=== PATIENT | male | born 1935 | race Caucasian/White ===

== ENCOUNTER 2021-05-13 21:24 | Inpatient (IN) | payer MEDICARE ==
[2021-05-13 23:53] LABS: ALT (SGPT) 14 U/L (8-55); AST (SGOT) 17 U/L (5-34); Albumin 3.8 g/dL (3.4-4.8); Alkaline Phosphatase 79 U/L (40-110); Anion Gap 15 mmol/L (10-20); BUN (Urea Nitrogen) 46 mg/dL (8.4-25.7); Bilirubin, Total 0.9 mg/dL (0.2-1.2); Calc. Creatinine Clearance 0 mL/min (70-130); Calcium 9.4 mg/dL (7.8-10.44); Carbon Dioxide 21 mmol/L (23-31); Chloride 109 mmol/L (98-107); Globulin 3.1 g/dL (2.4-3.5); Glucose 94 mg/dL (83-110); Potassium 4.3 mmol/L (3.5-5.1); Protein, Total 6.9 g/dL (5.8-8.1); Sodium 141 mmol/L (136-145)
[2021-05-14] MEDS ORDERED: cefTRIAXone\\ROCEPHIN 2 GM VIAL ONE (00:02)
[2021-05-14] MEDS ORDERED: Azithromycin 500 MG VIAL ONE (00:02)
[2021-05-14] MEDS ORDERED: Sodium Chloride 0.9% 100 ML ONE (00:02)
[2021-05-14 00:03] LABS: Bilirubin Negative (Negative); Blood, Urine Negative (Negative); Clarity Clear (Clear); Glucose, Urine (Dipstick) Normal (Negative); Ketone, Urine Trace mg/dL (Negative); Leukocyte Negative Leu/uL (Negative); Nitrite Negative (Negative); Protein, Urine (Dipstick) Negative (Neg-Trace); Specific Gravity, Urine 1.017 (1.002-1.036); Urobilinogen Normal mg/dL (Less than 2)
[2021-05-14 00:04] LABS: #Lymphocytes 0.9 thou/uL (1.20-3.40); #Monocytes 1.1 thou/uL (0.11-0.59); #Neutrophils 6.7 thou/uL (1.40-6.50); %Basophils 0.3 % (0.0-1.0); %Eosinophils 0.3 % (0.0-10.0); %Lymphocytes 9.7 % (21.0-51.0); %Neutrophils 76.8 % (42.0-75.0); Band 6 % (5-11); Hemoglobin 12.2 g/dL (14.0-18.0); Lymphocytes 3 % (21-51); MDiff Complete? YES; Macrocytosis SLIGHT = 6-15 cells (100X) (0-5/hpf); Mean Corpuscular HGB CONC 32.4 g/dL (32.0-36.0); Mean Corpuscular Hemoglobin 35.2 pg (27.0-31.0); Monocytes 14 % (0-10); Neutrophil 77 % (42-75); Platelet Count 150 thou/uL (130-400); Platelet Morphology Comment Appears Adequate; RBC Distribution Width 12.7 % (11.5-14.5); Red Blood Cell (RBC) Count 3.46 mill/uL (4.70-6.10); White Blood Cell (WBC) Count 8.7 thou/uL (4.8-10.8)
[2021-05-14 01:56] LABS: SARS-CoV-2 NAA Rapid Test Not Detected (NotDetected)
[2021-05-14 02:53] VITALS: BMI 25.4
[2021-05-14] MEDS ORDERED: Dextrose 5% in Water 1,000 ML IV PRN (09:58)
[2021-05-14] MEDS ORDERED: Dextrose 50% Abboject 50 ML SYRINGE SLOW IVP PRN (09:58)
[2021-05-14] MEDS ORDERED: Ondansetron PF 4 MG/2 ML Vial IVP PRN (09:58)
[2021-05-14] MEDS: Acetaminophen 325 MG TAB PO PRN ×2 (10:30→21:42)
[2021-05-14] MEDS ORDERED: hydrALAZINE 25 MG TAB PO SCH (10:45)
[2021-05-14] MEDS ORDERED: Nebivolol HCl 5 MG TAB PO SCH (10:45)
[2021-05-14] MEDS ORDERED: Non-Formulary Item 1 EACH (Bimatoprost [Lumigan] 5 ML Drops) OP SCH (21:00)
[2021-05-14] MEDS: Atorvastatin Calcium 40 MG TAB PO SCH (21:11)
[2021-05-14] MEDS: hydrALAZINE 25 MG TAB PO SCH (21:11)
[2021-05-14] MEDS: Latanoprost 0.005% Ophth Soln 2.5 ml Bottle EA EYE SCH (21:25)
[2021-05-14] MEDS: Timolol 0.5% Ophth Soln 5 ml Bottle EA EYE SCH (21:26)
[2021-05-14] MEDS: Brimonidine Tartrate 0.2% Ophth Soln 5 ml Bottle EA EYE SCH (21:26)
[2021-05-15] MEDS: Azithromycin 500 MG in Sodium Chloride 0.9% 250 ML 250 ML IVPB SCH (01:00)
[2021-05-15] MEDS: cefTRIAXone\\ROCEPHIN 1 GM in Sodium Chloride 0.9% 100 ML IVPB SCH (02:22)
[2021-05-15] MEDS: HumaLOG 300 UNITS/3 ML VIAL SC PRN (06:33)
[2021-05-15 07:22] LABS: Hemoglobin 11.1 g/dL (14.0-18.0); Mean Corpuscular HGB CONC 32.7 g/dL (32.0-36.0); Mean Corpuscular Hemoglobin 35.7 pg (27.0-31.0); Mean Platelet Volume 9.2 fL (7.4-10.4); Platelet Count 146 thou/uL (130-400); RBC Distribution Width 12.4 % (11.5-14.5); Red Blood Cell (RBC) Count 3.12 mill/uL (4.70-6.10)
[2021-05-15 07:34] LABS: Anion Gap 11 mmol/L (10-20); BUN (Urea Nitrogen) 42 mg/dL (8.4-25.7); Calc. Creatinine Clearance 36 mL/min (70-130); Calcium 8.6 mg/dL (7.8-10.44); Carbon Dioxide 25 mmol/L (23-31); Chloride 107 mmol/L (98-107); Glucose 121 mg/dL (83-110); Potassium 3.8 mmol/L (3.5-5.1); Sodium 139 mmol/L (136-145)
[2021-05-15 08:14] LABS: Band 7 % (5-11); Eosinophils 3 % (0-10); Lymphocytes 16 % (21-51); MDiff Complete? YES; Macrocytosis SLIGHT = 6-15 cells (100X) (0-5/hpf); Monocytes 16 % (0-10); Myelocyte 1 % (0-0); Neutrophil 57 % (42-75); Platelet Morphology Comment Appears Adequate
[2021-05-15] MEDS ORDERED: Non-Formulary Item 1 EACH (Nebivolol Hcl [Bystolic] 20 MG Tablet) PO SCH (09:00)
[2021-05-15] MEDS: Enoxaparin Sodium 40 MG/0.4 ML SYRINGE SC SCH (09:25)
[2021-05-15] MEDS: Nebivolol HCl 5 MG TAB PO SCH (09:26)
[2021-05-15] MEDS: hydrALAZINE 25 MG TAB PO SCH ×2 (09:26→20:28)
[2021-05-15] MEDS: Acetaminophen 325 MG TAB PO PRN ×2 (09:27→21:56)
[2021-05-15] MEDS: Brimonidine Tartrate 0.2% Ophth Soln 5 ml Bottle EA EYE SCH ×2 (09:27→20:30)
[2021-05-15] MEDS: Timolol 0.5% Ophth Soln 5 ml Bottle EA EYE SCH ×2 (09:27→20:29)
[2021-05-15] MEDS: Atorvastatin Calcium 40 MG TAB PO SCH (20:28)
[2021-05-15] MEDS: Latanoprost 0.005% Ophth Soln 2.5 ml Bottle EA EYE SCH (20:30)
[2021-05-16] MEDS: Azithromycin 500 MG in Sodium Chloride 0.9% 250 ML 250 ML IVPB SCH (01:18)
[2021-05-16] MEDS: Acetaminophen 325 MG TAB PO PRN ×3 (01:19→09:03)
[2021-05-16] MEDS: cefTRIAXone\\ROCEPHIN 1 GM in Sodium Chloride 0.9% 100 ML IVPB SCH (01:38)
[2021-05-16] MEDS: Brimonidine Tartrate 0.2% Ophth Soln 5 ml Bottle EA EYE SCH ×2 (08:01→20:57)
[2021-05-16] MEDS: Enoxaparin Sodium 40 MG/0.4 ML SYRINGE SC SCH (08:02)
[2021-05-16] MEDS: Timolol 0.5% Ophth Soln 5 ml Bottle EA EYE SCH ×2 (08:02→20:57)
[2021-05-16] MEDS: Nebivolol HCl 5 MG TAB PO SCH (08:02)
[2021-05-16] MEDS: hydrALAZINE 25 MG TAB PO SCH ×2 (08:02→20:54)
[2021-05-16 11:22] LABS: Hemoglobin 10.9 g/dL (14.0-18.0); Mean Corpuscular Hemoglobin 36.5 pg (27.0-31.0); Mean Platelet Volume 8.7 fL (7.4-10.4); Platelet Count 144 thou/uL (130-400); RBC Distribution Width 12.2 % (11.5-14.5); White Blood Cell (WBC) Count 8.2 thou/uL (4.8-10.8)
[2021-05-16 11:29] LABS: Anion Gap 11 mmol/L (10-20); BUN (Urea Nitrogen) 43 mg/dL (8.4-25.7); Calc. Creatinine Clearance 46 mL/min (70-130); Calcium 8.8 mg/dL (7.8-10.44); Carbon Dioxide 24 mmol/L (23-31); Chloride 106 mmol/L (98-107); Glucose 137 mg/dL (83-110); Potassium 3.7 mmol/L (3.5-5.1); Sodium 137 mmol/L (136-145)
[2021-05-16 11:53] LABS: Band 7 % (5-11); Eosinophils 2 % (0-10); Lymphocytes 14 % (21-51); MDiff Complete? YES; Macrocytosis SLIGHT = 6-15 cells (100X) (0-5/hpf); Metamyelocyte 2 % (0-0); Monocytes 18 % (0-10); Neutrophil 57 % (42-75); Ovalocytes SLIGHT = 2-5 cells (100X) (0-1/hpf); Platelet Morphology Comment Appears Adequate; Polychromasia SLIGHT = 2-3 cells (100X) (0-2/hpf)
[2021-05-16] MEDS ORDERED: Morphine 2 MG/ML VIAL SLOW IVP PRN (13:14)
[2021-05-16] MEDS ORDERED: methylPREDNISolone Sod Succ/PF 125 MG/2 ML VIAL IVP SCH (13:15)
[2021-05-16] MEDS ORDERED: Furosemide 20 MG/2 ML VIAL SLOW IVP SCH (13:15)
[2021-05-16] MEDS: Furosemide 20 MG/2 ML VIAL SLOW IVP SCH (13:50)
[2021-05-16] MEDS: traMADol HCl 50 MG TAB PO PRN ×2 (13:59→20:59)
[2021-05-16] MEDS: Atorvastatin Calcium 40 MG TAB PO SCH (20:54)
[2021-05-16] MEDS: Latanoprost 0.005% Ophth Soln 2.5 ml Bottle EA EYE SCH (20:57)
[2021-05-16] MEDS: HumaLOG 300 UNITS/3 ML VIAL SC PRN (21:11)
[2021-05-17] MEDS: Azithromycin 500 MG in Sodium Chloride 0.9% 250 ML 250 ML IVPB SCH (00:12)
[2021-05-17] MEDS: Acetaminophen 325 MG TAB PO PRN ×3 (01:46→21:55)
[2021-05-17] MEDS: cefTRIAXone\\ROCEPHIN 1 GM in Sodium Chloride 0.9% 100 ML IVPB SCH (01:46)
[2021-05-17 05:41] LABS: #Lymphocytes 0.6 thou/uL (1.20-3.40); #Monocytes 0.5 thou/uL (0.11-0.59); #Neutrophils 6.5 thou/uL (1.40-6.50); %Eosinophils 0.1 % (0.0-10.0); %Lymphocytes 7.7 % (21.0-51.0); %Monocytes 6.2 % (0.0-10.0); %Neutrophils 86.1 % (42.0-75.0); Hemoglobin 10.9 g/dL (14.0-18.0); Mean Corpuscular HGB CONC 32.7 g/dL (32.0-36.0); Mean Corpuscular Hemoglobin 35.1 pg (27.0-31.0); Mean Platelet Volume 9.1 fL (7.4-10.4); Platelet Count 150 thou/uL (130-400); RBC Distribution Width 12.1 % (11.5-14.5); White Blood Cell (WBC) Count 7.6 thou/uL (4.8-10.8)
[2021-05-17 05:56] LABS: Anion Gap 13 mmol/L (10-20); BUN (Urea Nitrogen) 47 mg/dL (8.4-25.7); Calc. Creatinine Clearance 38 mL/min (70-130); Calcium 8.7 mg/dL (7.8-10.44); Carbon Dioxide 22 mmol/L (23-31); Chloride 106 mmol/L (98-107); Glucose 228 mg/dL (83-110); Potassium 4.2 mmol/L (3.5-5.1); Sodium 137 mmol/L (136-145)
[2021-05-17] MEDS: HumaLOG 300 UNITS/3 ML VIAL SC PRN ×3 (05:59→16:18)
[2021-05-17] MEDS: Furosemide 20 MG/2 ML VIAL SLOW IVP SCH (05:59)
[2021-05-17] MEDS: Brimonidine Tartrate 0.2% Ophth Soln 5 ml Bottle EA EYE SCH ×2 (08:02→21:49)
[2021-05-17] MEDS: Timolol 0.5% Ophth Soln 5 ml Bottle EA EYE SCH ×2 (08:03→21:49)
[2021-05-17] MEDS: hydrALAZINE 25 MG TAB PO SCH ×2 (08:04→21:48)
[2021-05-17] MEDS: Nebivolol HCl 5 MG TAB PO SCH (08:05)
[2021-05-17] MEDS: Enoxaparin Sodium 40 MG/0.4 ML SYRINGE SC SCH (08:06)
[2021-05-17] MEDS ORDERED: predniSONE 20 MG TAB PO SCH (13:15)
[2021-05-17] MEDS: Latanoprost 0.005% Ophth Soln 2.5 ml Bottle EA EYE SCH (21:48)
[2021-05-17] MEDS: Atorvastatin Calcium 40 MG TAB PO SCH (21:48)
[2021-05-18] MEDS: Azithromycin 500 MG in Sodium Chloride 0.9% 250 ML 250 ML IVPB SCH (00:37)
[2021-05-18] MEDS: cefTRIAXone\\ROCEPHIN 1 GM in Sodium Chloride 0.9% 100 ML IVPB SCH (01:50)
[2021-05-18 05:46] LABS: #Lymphocytes 0.6 thou/uL (1.20-3.40); #Monocytes 0.5 thou/uL (0.11-0.59); #Neutrophils 9.1 thou/uL (1.40-6.50); %Eosinophils 0.1 % (0.0-10.0); %Lymphocytes 5.6 % (21.0-51.0); %Monocytes 5.3 % (0.0-10.0); Hemoglobin 11.8 g/dL (14.0-18.0); Mean Corpuscular HGB CONC 32.9 g/dL (32.0-36.0); Mean Corpuscular Hemoglobin 35.6 pg (27.0-31.0); Mean Platelet Volume 8.9 fL (7.4-10.4); Platelet Count 193 thou/uL (130-400); RBC Distribution Width 12.3 % (11.5-14.5); White Blood Cell (WBC) Count 10.3 thou/uL (4.8-10.8)
[2021-05-18 06:07] LABS: Anion Gap 12 mmol/L (10-20); BUN (Urea Nitrogen) 61 mg/dL (8.4-25.7); Calc. Creatinine Clearance 38 mL/min (70-130); Calcium 8.9 mg/dL (7.8-10.44); Carbon Dioxide 22 mmol/L (23-31); Chloride 106 mmol/L (98-107); Glucose 225 mg/dL (83-110); Potassium 4.3 mmol/L (3.5-5.1); Sodium 136 mmol/L (136-145)
[2021-05-18] MEDS ORDERED: Furosemide 40 MG TAB PO SCH (07:30)
[2021-05-18 08:17] VITALS: BP 143/88; TEMP 97.8
[2021-05-18] MEDS: Nebivolol HCl 5 MG TAB PO SCH (08:19)
[2021-05-18] MEDS: Enoxaparin Sodium 40 MG/0.4 ML SYRINGE SC SCH (08:20)
[2021-05-18] MEDS: hydrALAZINE 25 MG TAB PO SCH (08:20)
[2021-05-18] MEDS: Brimonidine Tartrate 0.2% Ophth Soln 5 ml Bottle EA EYE SCH (08:22)
[2021-05-18] MEDS: Timolol 0.5% Ophth Soln 5 ml Bottle EA EYE SCH (08:22)
[2021-05-18] MEDS: Acetaminophen 325 MG TAB PO PRN (08:28)
[2021-05-18] MEDS ORDERED: Timolol 0.5% Ophth Soln 5 ml Bottle R EYE SCH (21:00)
== END 2021-05-18 14:45 | disposition home or self-care (01) | DRG 193 ==
LOC: ERS 21:24 → T4-B 05-14 00:40 → OBSVTOIN 05-14 09:58
PROVIDERS: ADMIT Internal Medicine; ATTEND Hospitalist
DX: J18.9 Pneumonia, unspecified organism (principal); I50.33 Acute on chronic diastolic (congestive) heart failure; N17.9 Acute kidney failure, unspecified; I13.0 Hypertensive heart and chronic kidney disease with heart failure and stage 1 through stage 4 chronic kidney disease, or unspecified chronic kidney disease; N18.30 Chronic kidney disease, stage 3 unspecified; M72.2 Plantar fascial fibromatosis; E11.22 Type 2 diabetes mellitus with diabetic chronic kidney disease; M19.90 Unspecified osteoarthritis, unspecified site; Z90.49 Acquired absence of other specified parts of digestive tract; Z90.79 Acquired absence of other genital organ(s); Z88.8 Allergy status to other drugs, medicaments and biological substances; Z79.84 Long term (current) use of oral hypoglycemic drugs; Z79.899 Other long term (current) drug therapy
CPT/HCPCS: 0240U; 36415; 36416; 71045; 80048; 80053; 81003; 83605; 83880; 84484; 85025; 87040; 93005; 93306; 94760; 96365; 96367; 96376; G0378; J0456; J0696; J1815; J1940; J2930; J3490; J7050; J7512

== ENCOUNTER 2022-01-15 11:47 | Inpatient (IN) | payer MEDICARE ==
[2022-01-15 12:48] LABS: ALT (SGPT) 14 U/L (8-55); AST (SGOT) 16 U/L (5-34); Albumin 3.8 g/dL (3.4-4.8); Alkaline Phosphatase 67 U/L (40-110); Anion Gap 17 mmol/L (10-20); BUN (Urea Nitrogen) 75 mg/dL (8.4-25.7); Bilirubin, Total 0.6 mg/dL (0.2-1.2); Calc. Creatinine Clearance 0 mL/min (70-130); Calcium 9.3 mg/dL (7.8-10.44); Carbon Dioxide 23 mmol/L (23-31); Chloride 108 mmol/L (98-107); Estimated GFR 26; Globulin 2.8 g/dL (2.4-3.5); Glucose 71 mg/dL (83-110); Potassium 5.7 mmol/L (3.5-5.1); Protein, Total 6.6 g/dL (5.8-8.1); Sodium 142 mmol/L (136-145)
[2022-01-15 12:51] LABS: #Eosinphils 0.1 thou/uL (0.0-0.7); #Lymphocytes 1.1 thou/uL (1.20-3.40); #Monocytes 0.8 thou/uL (0.11-0.59); #Neutrophils 3.9 thou/uL (1.40-6.50); %Basophils 0.3 % (0.0-1.0); %Eosinophils 2.5 % (0.0-10.0); %Lymphocytes 17.9 % (21.0-51.0); %Neutrophils 65.4 % (42.0-75.0); Hemoglobin 11.3 g/dL (14.0-18.0); MDiff Complete? YES; Macrocytosis SLIGHT = 6-15 cells (100X) (0-5/hpf); Mean Corpuscular HGB CONC 31.2 g/dL (32.0-36.0); Mean Platelet Volume 10.1 fL (7.4-10.4); Platelet Count 110 thou/uL (130-400); Platelet Morphology Comment Appears Decreased; Polychromasia SLIGHT = 2-3 cells (100X) (0-2/hpf); RBC Distribution Width 13.4 % (11.5-14.5); Red Blood Cell (RBC) Count 3.24 mill/uL (4.70-6.10); White Blood Cell (WBC) Count 5.9 thou/uL (4.8-10.8)
[2022-01-15] MEDS ORDERED: Furosemide 40 MG/4 ML VIAL ONE (15:31)
[2022-01-15] MEDS ORDERED: Acetaminophen 325 MG TAB ONE (15:31)
[2022-01-15 16:13] LABS: Bilirubin Negative (Negative); Blood, Urine Negative (Negative); Clarity Clear (Clear); Glucose, Urine (Dipstick) Normal (Negative); Ketone, Urine Negative (Negative); Leukocyte Negative Leu/uL (Negative); Nitrite Negative (Negative); Protein, Urine (Dipstick) Negative (Neg-Trace); Specific Gravity, Urine 1.014 (1.002-1.036); Urobilinogen Normal mg/dL (Less than 2)
[2022-01-15] MEDS ORDERED: CALCIUM GLUC 1GM/NS 50ML BAG ONE (16:18)
[2022-01-15] MEDS ORDERED: Calcium Gluc 4.6 MEQ/10 ML (100 MG/ML) ONE (16:21)
[2022-01-15] MEDS ORDERED: Ondansetron PF 4 MG/2 ML Vial IVP PRN (16:39)
[2022-01-15] MEDS ORDERED: Ondansetron ODT 4 MG TAB PO PRN (16:39)
[2022-01-15] MEDS ORDERED: Acetaminophen 650 MG Suppository PR PRN (16:39)
[2022-01-15] MEDS ORDERED: Acetaminophen 325 MG TAB PO PRN (16:39)
[2022-01-15] MEDS ORDERED: Furosemide 40 MG/4 ML VIAL SLOW IVP SCH (16:45)
[2022-01-15 17:04] LABS: Anion Gap 13 mmol/L (10-20); BUN (Urea Nitrogen) 70 mg/dL (8.4-25.7); Calc. Creatinine Clearance 0 mL/min (70-130); Calcium 9.1 mg/dL (7.8-10.44); Carbon Dioxide 27 mmol/L (23-31); Chloride 108 mmol/L (98-107); Estimated GFR 26; Glucose 98 mg/dL (83-110); Potassium 5.6 mmol/L (3.5-5.1); Sodium 142 mmol/L (136-145)
[2022-01-15 17:05] LABS: Troponin I 0.022 ng/mL (< 0.028)
[2022-01-15 17:12] LABS: Magnesium 2.9 mg/dL (1.6-2.6)
[2022-01-15] MEDS: Heparin 5,000 UNITS/ML VIAL SC SCH (21:00)
[2022-01-15 21:50] LABS: Anion Gap 13 mmol/L (10-20); BUN (Urea Nitrogen) 71 mg/dL (8.4-25.7); Calc. Creatinine Clearance 24 mL/min (70-130); Calcium 9.1 mg/dL (7.8-10.44); Carbon Dioxide 26 mmol/L (23-31); Chloride 107 mmol/L (98-107); Estimated GFR 24; Glucose 162 mg/dL (83-110); Potassium 5.4 mmol/L (3.5-5.1); Sodium 141 mmol/L (136-145)
[2022-01-15 21:54] LABS: Troponin I 0.021 ng/mL (< 0.028)
[2022-01-16 04:35] LABS: #Eosinphils 0.1 thou/uL (0.0-0.7); #Monocytes 0.7 thou/uL (0.11-0.59); %Basophils 0.3 % (0.0-1.0); %Lymphocytes 20.8 % (21.0-51.0); %Monocytes 14.4 % (0.0-10.0); %Neutrophils 61.5 % (42.0-75.0); Hemoglobin 11.1 g/dL (14.0-18.0); Mean Corpuscular HGB CONC 31.9 g/dL (32.0-36.0); Mean Corpuscular Hemoglobin 35.5 pg (27.0-31.0); Mean Platelet Volume 9.9 fL (7.4-10.4); Platelet Count 101 thou/uL (130-400); RBC Distribution Width 13.3 % (11.5-14.5); Red Blood Cell (RBC) Count 3.13 mill/uL (4.70-6.10); White Blood Cell (WBC) Count 4.9 thou/uL (4.8-10.8)
[2022-01-16 04:50] LABS: Iron 99 ug/dL (65-175); Iron Binding Capacity, Total 318 mcg/dL (261-462)
[2022-01-16 04:53] LABS: Anion Gap 14 mmol/L (10-20); BUN (Urea Nitrogen) 78 mg/dL (8.4-25.7); Calc. Creatinine Clearance 24 mL/min (70-130); Calcium 9.1 mg/dL (7.8-10.44); Carbon Dioxide 26 mmol/L (23-31); Chloride 109 mmol/L (98-107); Estimated GFR 25; Glucose 88 mg/dL (83-110); Potassium 5.1 mmol/L (3.5-5.1); Sodium 144 mmol/L (136-145)
[2022-01-16 05:10] LABS: Vitamin D, 25 Hydroxy 9.4 ng/ml (> 30.0)
[2022-01-16 05:15] LABS: Ferritin 40.27 ng/mL (22-322)
[2022-01-16 06:00] LABS: Vitamin B12 Greater than 2000 pg/mL (211-911)
[2022-01-16] MEDS ORDERED: Furosemide 40 MG/4 ML VIAL SLOW IVP SCH (06:00)
[2022-01-16] MEDS: Dorzolamide HCl 2% Ophth Soln 10 ml Bottle R EYE SCH ×2 (08:44→20:30)
[2022-01-16] MEDS: Brimonidine Tartrate 0.2% Ophth Soln 5 ml Bottle EA EYE SCH ×2 (08:44→20:29)
[2022-01-16] MEDS: Timolol 0.5% Ophth Soln 5 ml Bottle EA EYE SCH ×2 (08:44→20:30)
[2022-01-16] MEDS: Heparin 5,000 UNITS/ML VIAL SC SCH ×2 (08:44→20:30)
[2022-01-16] MEDS: Atorvastatin Calcium 40 MG TAB PO SCH (08:44)
[2022-01-16] MEDS ORDERED: hydrALAZINE 25 MG TAB PO PRN (09:49)
[2022-01-16 11:33] LABS: Creatinine, Urine 47.62 mg/dL (63-166)
[2022-01-16] MEDS: Furosemide 40 MG/4 ML VIAL SLOW IVP SCH (16:01)
[2022-01-16] MEDS: Fluticasone Propionate Nasal Spray 16 gm Bottle NASAL SCH (20:28)
[2022-01-16] MEDS ORDERED: Latanoprost 0.005% Ophth Soln 2.5 ml Bottle EA EYE SCH (21:00)
[2022-01-17 05:08] LABS: Anion Gap 17 mmol/L (10-20); BUN (Urea Nitrogen) 78 mg/dL (8.4-25.7); Calc. Creatinine Clearance 25 mL/min (70-130); Calcium 8.9 mg/dL (7.8-10.44); Carbon Dioxide 26 mmol/L (23-31); Chloride 107 mmol/L (98-107); Estimated GFR 27; Glucose 146 mg/dL (83-110); Potassium 4.2 mmol/L (3.5-5.1); Sodium 146 mmol/L (136-145)
[2022-01-17 05:36] LABS: Hemoglobin 10.7 g/dL (14.0-18.0); Lymphocytes 8 % (21-51); MDiff Complete? YES; Macrocytosis SLIGHT = 6-15 cells (100X) (0-5/hpf); Mean Corpuscular Hemoglobin 36.3 pg (27.0-31.0); Mean Platelet Volume 10.1 fL (7.4-10.4); Monocytes 13 % (0-10); Neutrophil 79 % (42-75); Platelet Count 99 thou/uL (130-400); Platelet Morphology Comment Appears Decreased; RBC Distribution Width 13.4 % (11.5-14.5); Red Blood Cell (RBC) Count 2.96 mill/uL (4.70-6.10); White Blood Cell (WBC) Count 6.2 thou/uL (4.8-10.8)
[2022-01-17] MEDS: Furosemide 40 MG/4 ML VIAL SLOW IVP SCH ×2 (05:44→13:23)
[2022-01-17] MEDS: Atorvastatin Calcium 40 MG TAB PO SCH (08:36)
[2022-01-17] MEDS: Nebivolol HCl 5 MG TAB PO SCH (08:37)
[2022-01-17] MEDS: Heparin 5,000 UNITS/ML VIAL SC SCH ×2 (08:37→21:06)
[2022-01-17] MEDS: Fluticasone Propionate Nasal Spray 16 gm Bottle NASAL SCH ×2 (08:45→21:12)
[2022-01-17] MEDS: Dorzolamide HCl 2% Ophth Soln 10 ml Bottle R EYE SCH ×2 (08:48→21:13)
[2022-01-17] MEDS: Brimonidine Tartrate 0.2% Ophth Soln 5 ml Bottle EA EYE SCH ×2 (08:48→21:34)
[2022-01-17] MEDS: Timolol 0.5% Ophth Soln 5 ml Bottle EA EYE SCH ×2 (08:50→21:35)
[2022-01-17] MEDS ORDERED: Lidocaine 5% Patch TD SCH ×2 (12:30→13:00)
[2022-01-17] MEDS: cefTRIAXone\\ROCEPHIN 1 GM in Sodium Chloride 0.9% 100 ML IVPB SCH (13:23)
[2022-01-17] MEDS: Acetaminophen 500 MG TAB PO SCH (21:07)
[2022-01-18] MEDS: Transdermal Patch Removal TOP SCH ×2 (02:02→21:06)
[2022-01-18 04:59] LABS: Anion Gap 14 mmol/L (10-20); BUN (Urea Nitrogen) 82 mg/dL (8.4-25.7); Calc. Creatinine Clearance 31 mL/min (70-130); Calcium 8.5 mg/dL (7.8-10.44); Carbon Dioxide 28 mmol/L (23-31); Chloride 107 mmol/L (98-107); Estimated GFR 34; Glucose 179 mg/dL (83-110); Potassium 3.5 mmol/L (3.5-5.1); Sodium 145 mmol/L (136-145)
[2022-01-18 05:33] LABS: Burr Cells SLIGHT = 2-5 cells (100X) (0-1/hpf); Elliptocytes SLIGHT = 2-5 cells (100X) (0-1/hpf); Eosinophils 2 % (0-10); Hemoglobin 10.7 g/dL (14.0-18.0); Hypochromia SLIGHT = 6-15 cells (100X) (0-5/hpf); Lymphocytes 23 % (21-51); MDiff Complete? YES; Macrocytosis MODERATE=16-30 cells (100X) (0-5/hpf); Mean Corpuscular HGB CONC 31.5 g/dL (32.0-36.0); Mean Corpuscular Hemoglobin 35.9 pg (27.0-31.0); Mean Platelet Volume 10.2 fL (7.4-10.4); Monocytes 11 % (0-10); Neutrophil 62 % (42-75); Ovalocytes SLIGHT = 2-5 cells (100X) (0-1/hpf); Platelet Count 100 thou/uL (130-400); Platelet Morphology Comment Appears Decreased; Polychromasia SLIGHT = 2-3 cells (100X) (0-2/hpf); RBC Distribution Width 13.1 % (11.5-14.5); Red Blood Cell (RBC) Count 2.99 mill/uL (4.70-6.10); White Blood Cell (WBC) Count 6.3 thou/uL (4.8-10.8)
[2022-01-18] MEDS: Furosemide 40 MG/4 ML VIAL SLOW IVP SCH ×2 (06:12→13:23)
[2022-01-18] MEDS: Acetaminophen 500 MG TAB PO SCH ×2 (09:57→21:07)
[2022-01-18] MEDS: Atorvastatin Calcium 40 MG TAB PO SCH (09:58)
[2022-01-18] MEDS: Brimonidine Tartrate 0.2% Ophth Soln 5 ml Bottle EA EYE SCH ×2 (09:58→21:09)
[2022-01-18] MEDS: Dorzolamide HCl 2% Ophth Soln 10 ml Bottle R EYE SCH ×2 (09:58→21:08)
[2022-01-18] MEDS: Fluticasone Propionate Nasal Spray 16 gm Bottle NASAL SCH ×2 (09:59→21:09)
[2022-01-18] MEDS: Lidocaine 5% Patch TD SCH (10:00)
[2022-01-18] MEDS: Heparin 5,000 UNITS/ML VIAL SC SCH ×2 (10:00→20:21)
[2022-01-18] MEDS: Nebivolol HCl 5 MG TAB PO SCH (10:01)
[2022-01-18] MEDS: Timolol 0.5% Ophth Soln 5 ml Bottle EA EYE SCH ×2 (10:01→21:08)
[2022-01-18] MEDS: cefTRIAXone\\ROCEPHIN 1 GM in Sodium Chloride 0.9% 100 ML IVPB SCH (13:24)
[2022-01-19] MEDS ORDERED: hydrALAZINE 25 MG TAB PO PRN (01:42)
[2022-01-19 05:25] LABS: Anion Gap 14 mmol/L (10-20); BUN (Urea Nitrogen) 70 mg/dL (8.4-25.7); Calc. Creatinine Clearance 33 mL/min (70-130); Calcium 8.9 mg/dL (7.8-10.44); Carbon Dioxide 32 mmol/L (23-31); Chloride 104 mmol/L (98-107); Estimated GFR 37; Glucose 168 mg/dL (83-110); Potassium 3.5 mmol/L (3.5-5.1); Sodium 146 mmol/L (136-145)
[2022-01-19 05:26] LABS: Eosinophils 1 % (0-10); Hemoglobin 11.3 g/dL (14.0-18.0); Lymphocytes 21 % (21-51); MDiff Complete? YES; Macrocytosis SLIGHT = 6-15 cells (100X) (0-5/hpf); Mean Corpuscular Hemoglobin 35.6 pg (27.0-31.0); Mean Platelet Volume 10.3 fL (7.4-10.4); Monocytes 13 % (0-10); Neutrophil 64 % (42-75); Platelet Count 113 thou/uL (130-400); Platelet Morphology Comment Appears Decreased; RBC Distribution Width 13.1 % (11.5-14.5); Reactive Lymphocytes 1 % (0-10); Red Blood Cell (RBC) Count 3.17 mill/uL (4.70-6.10); White Blood Cell (WBC) Count 7.1 thou/uL (4.8-10.8)
[2022-01-19] MEDS: Furosemide 40 MG/4 ML VIAL SLOW IVP SCH ×2 (06:35→15:39)
[2022-01-19] MEDS: Acetaminophen 500 MG TAB PO SCH ×2 (09:42→21:31)
[2022-01-19] MEDS: Atorvastatin Calcium 40 MG TAB PO SCH (09:42)
[2022-01-19] MEDS: Brimonidine Tartrate 0.2% Ophth Soln 5 ml Bottle EA EYE SCH ×2 (09:43→21:38)
[2022-01-19] MEDS: Dorzolamide HCl 2% Ophth Soln 10 ml Bottle R EYE SCH ×2 (09:43→21:33)
[2022-01-19] MEDS: Fluticasone Propionate Nasal Spray 16 gm Bottle NASAL SCH ×2 (09:43→21:35)
[2022-01-19] MEDS: Heparin 5,000 UNITS/ML VIAL SC SCH (09:44)
[2022-01-19] MEDS: Lidocaine 5% Patch TD SCH (09:44)
[2022-01-19] MEDS: Nebivolol HCl 5 MG TAB PO SCH (09:45)
[2022-01-19] MEDS: Timolol 0.5% Ophth Soln 5 ml Bottle EA EYE SCH ×2 (09:45→21:27)
[2022-01-19] MEDS ORDERED: Potassium Chloride 20 MEQ TAB PO SCH (13:15)
[2022-01-19] MEDS ORDERED: Lidocaine 5% Patch TD SCH (13:30)
[2022-01-19] MEDS: cefTRIAXone\\ROCEPHIN 1 GM in Sodium Chloride 0.9% 100 ML IVPB SCH (15:36)
[2022-01-19] MEDS ORDERED: Enoxaparin Sodium 80 MG/0.8 ML SYRINGE SC SCH (21:00)
[2022-01-19] MEDS: Transdermal Patch Removal TOP SCH (21:29)
[2022-01-19] MEDS: Latanoprost 0.005% Ophth Soln 2.5 ml Bottle EA EYE SCH (21:46)
[2022-01-20 05:08] LABS: Anion Gap 14 mmol/L (10-20); BUN (Urea Nitrogen) 71 mg/dL (8.4-25.7); Calc. Creatinine Clearance 34 mL/min (70-130); Calcium 8.6 mg/dL (7.8-10.44); Carbon Dioxide 28 mmol/L (23-31); Chloride 107 mmol/L (98-107); Estimated GFR 41; Glucose 177 mg/dL (83-110); Potassium 3.9 mmol/L (3.5-5.1); Sodium 145 mmol/L (136-145)
[2022-01-20] MEDS: Furosemide 40 MG/4 ML VIAL SLOW IVP SCH (06:54)
[2022-01-20] MEDS: Furosemide 40 MG TAB PO SCH (09:31)
[2022-01-20] MEDS: Apixaban 2.5 MG TAB PO SCH ×2 (09:32→21:19)
[2022-01-20] MEDS: Acetaminophen 500 MG TAB PO SCH ×2 (09:32→21:18)
[2022-01-20] MEDS: Atorvastatin Calcium 40 MG TAB PO SCH (09:32)
[2022-01-20] MEDS: Fluticasone Propionate Nasal Spray 16 gm Bottle NASAL SCH ×2 (09:35→21:19)
[2022-01-20] MEDS: Lidocaine 5% Patch TD SCH (09:36)
[2022-01-20] MEDS: Empagliflozin 10 MG TAB PO SCH (09:37)
[2022-01-20] MEDS: Nebivolol HCl 5 MG TAB PO SCH (09:58)
[2022-01-20] MEDS: Dorzolamide HCl 2% Ophth Soln 10 ml Bottle R EYE SCH ×2 (10:10→21:21)
[2022-01-20] MEDS: Brimonidine Tartrate 0.2% Ophth Soln 5 ml Bottle EA EYE SCH ×2 (10:10→21:21)
[2022-01-20] MEDS: Timolol 0.5% Ophth Soln 5 ml Bottle EA EYE SCH ×2 (10:11→21:20)
[2022-01-20] MEDS: cefTRIAXone\\ROCEPHIN 1 GM in Sodium Chloride 0.9% 100 ML IVPB SCH (14:26)
[2022-01-20] MEDS: Latanoprost 0.005% Ophth Soln 2.5 ml Bottle EA EYE SCH (21:21)
[2022-01-20] MEDS: Transdermal Patch Removal TOP SCH (21:21)
[2022-01-21] MEDS: Apixaban 2.5 MG TAB PO SCH ×2 (08:53→21:29)
[2022-01-21] MEDS: Acetaminophen 500 MG TAB PO SCH ×2 (08:53→21:28)
[2022-01-21] MEDS: Furosemide 40 MG TAB PO SCH (08:53)
[2022-01-21] MEDS: Nebivolol HCl 5 MG TAB PO SCH (08:54)
[2022-01-21] MEDS: Atorvastatin Calcium 40 MG TAB PO SCH (08:54)
[2022-01-21] MEDS: Empagliflozin 10 MG TAB PO SCH (08:54)
[2022-01-21] MEDS: Brimonidine Tartrate 0.2% Ophth Soln 5 ml Bottle EA EYE SCH ×2 (09:01→21:29)
[2022-01-21] MEDS: Timolol 0.5% Ophth Soln 5 ml Bottle EA EYE SCH ×2 (09:01→21:29)
[2022-01-21] MEDS: Fluticasone Propionate Nasal Spray 16 gm Bottle NASAL SCH ×2 (09:02→21:31)
[2022-01-21] MEDS: Lidocaine 5% Patch TD SCH (09:37)
[2022-01-21] MEDS: Dorzolamide HCl 2% Ophth Soln 10 ml Bottle R EYE SCH ×2 (09:37→21:29)
[2022-01-21 10:22] LABS: Anion Gap 11 mmol/L (10-20); BUN (Urea Nitrogen) 72 mg/dL (8.4-25.7); Calc. Creatinine Clearance 35 mL/min (70-130); Calcium 8.8 mg/dL (7.8-10.44); Carbon Dioxide 32 mmol/L (23-31); Chloride 104 mmol/L (98-107); Estimated GFR 39; Glucose 185 mg/dL (83-110); Potassium 3.8 mmol/L (3.5-5.1); Sodium 143 mmol/L (136-145)
[2022-01-21] MEDS: cefTRIAXone\\ROCEPHIN 1 GM in Sodium Chloride 0.9% 100 ML IVPB SCH (15:35)
[2022-01-21] MEDS: Latanoprost 0.005% Ophth Soln 2.5 ml Bottle EA EYE SCH (21:30)
[2022-01-21] MEDS: Transdermal Patch Removal TOP SCH (21:30)
[2022-01-22] MEDS: Nebivolol HCl 5 MG TAB PO SCH (08:49)
[2022-01-22] MEDS: Apixaban 2.5 MG TAB PO SCH (08:49)
[2022-01-22] MEDS: Furosemide 40 MG TAB PO SCH (08:49)
[2022-01-22] MEDS: Atorvastatin Calcium 40 MG TAB PO SCH (08:49)
[2022-01-22] MEDS: Empagliflozin 10 MG TAB PO SCH (08:49)
[2022-01-22] MEDS: Acetaminophen 500 MG TAB PO SCH (08:49)
[2022-01-22] MEDS: Lidocaine 5% Patch TD SCH (08:50)
[2022-01-22] MEDS: Fluticasone Propionate Nasal Spray 16 gm Bottle NASAL SCH (08:50)
[2022-01-22] MEDS: Timolol 0.5% Ophth Soln 5 ml Bottle EA EYE SCH (08:50)
[2022-01-22] MEDS: Brimonidine Tartrate 0.2% Ophth Soln 5 ml Bottle EA EYE SCH (08:51)
[2022-01-22] MEDS: Dorzolamide HCl 2% Ophth Soln 10 ml Bottle R EYE SCH (08:51)
[2022-01-22 09:52] VITALS: BMI 25.9
[2022-01-22 10:40] LABS: Anion Gap 13 mmol/L (10-20); BUN (Urea Nitrogen) 67 mg/dL (8.4-25.7); Calc. Creatinine Clearance 41 mL/min (70-130); Calcium 8.8 mg/dL (7.8-10.44); Carbon Dioxide 30 mmol/L (23-31); Chloride 107 mmol/L (98-107); Estimated GFR 48; Glucose 158 mg/dL (83-110); Potassium 4.6 mmol/L (3.5-5.1); Sodium 145 mmol/L (136-145)
[2022-01-22] MEDS ORDERED: Docusate 100 MG CAP PO PRN (12:05)
[2022-01-22] MEDS ORDERED: Polyethylene Glycol 3350 17 GM Packet PO PRN (12:05)
[2022-01-22] MEDS ORDERED: Polyethylene Glycol 3350 17 GM Packet PO SCH (14:00)
[2022-01-22] MEDS ORDERED: Docusate 100 MG CAP PO SCH (14:00)
[2022-01-22 17:06] VITALS: BP 126/83; TEMP 98
[2022-01-23] MEDS ORDERED: Ergocalciferol 1.25 MG(50,000 UNITS) CAP PO SCH (09:00)
== END 2022-01-22 20:02 | disposition swing bed (61) | DRG 291 ==
LOC: ERS 11:47 → 2NO 16:22
PROVIDERS: ADMIT Internal Medicine; ATTEND Internal Medicine
DX: I13.0 Hypertensive heart and chronic kidney disease with heart failure and stage 1 through stage 4 chronic kidney disease, or unspecified chronic kidney disease (principal); I50.33 Acute on chronic diastolic (congestive) heart failure; N17.9 Acute kidney failure, unspecified; I48.21 Permanent atrial fibrillation; E87.0 Hyperosmolality and hypernatremia; E87.1 Hypo-osmolality and hyponatremia; G89.29 Other chronic pain; M54.9 Dorsalgia, unspecified; M54.2 Cervicalgia; N18.30 Chronic kidney disease, stage 3 unspecified; D63.1 Anemia in chronic kidney disease; E78.5 Hyperlipidemia, unspecified; E87.5 Hyperkalemia; E11.22 Type 2 diabetes mellitus with diabetic chronic kidney disease; H40.9 Unspecified glaucoma; E55.9 Vitamin D deficiency, unspecified; M25.572 Pain in left ankle and joints of left foot; M25.571 Pain in right ankle and joints of right foot; Z79.899 Other long term (current) drug therapy; Z79.84 Long term (current) use of oral hypoglycemic drugs; Z90.49 Acquired absence of other specified parts of digestive tract; Z90.79 Acquired absence of other genital organ(s); Z88.8 Allergy status to other drugs, medicaments and biological substances
CPT/HCPCS: 36415; 36416; 71045; 76770; 80048; 80053; 81003; 82306; 82570; 82607; 82728; 83540; 83550; 83735; 83880; 83970; 84156; 84443; 84484; 85025; 93005; 93010; 93306; 96365; 96375; 97139; J0610; J0696; J1644; J1650; J1940; J3490; U0003; U0005

== ENCOUNTER 2022-02-03 21:05 | Inpatient (IN) | payer MEDICARE ==
[2022-02-03] MEDS ORDERED: Ondansetron PF 4 MG/2 ML Vial IVP PRN (22:21)
[2022-02-03] MEDS ORDERED: Acetaminophen 325 MG TAB PO PRN (22:21)
[2022-02-03] MEDS ORDERED: Ondansetron ODT 4 MG TAB PO PRN (22:21)
[2022-02-03 22:27] LABS: Anion Gap 17 mmol/L (10-20); BUN (Urea Nitrogen) 42 mg/dL (8.4-25.7); Calc. Creatinine Clearance 0 mL/min (70-130); Carbon Dioxide 31 mmol/L (23-31); Chloride 103 mmol/L (98-107); Estimated GFR 46; Glucose 100 mg/dL (83-110); Potassium 3.3 mmol/L (3.5-5.1); Sodium 148 mmol/L (136-145)
[2022-02-03] MEDS ORDERED: Sodium Chloride 0.9% 1,000 ML IV SCH (22:30)
[2022-02-03] MEDS ORDERED: HumaLOG 300 UNITS/3 ML VIAL SC PRN ×2 (23:54)
[2022-02-03] MEDS ORDERED: Dextrose 5% in Water 1,000 ML IV PRN (23:54)
[2022-02-03] MEDS ORDERED: Dextrose 50% Abboject 50 ML SYRINGE SLOW IVP PRN (23:54)
[2022-02-04] MEDS ORDERED: Potassium Chloride 20 MEQ TAB PO SCH (00:15)
[2022-02-04 00:34] LABS: Magnesium 1.7 mg/dL (1.6-2.6)
[2022-02-04] MEDS ORDERED: Magnesium 2 GM/50 ML(in water) 2 GM in Premix Bag 1 BAG IVPB SCH (01:00)
[2022-02-04] MEDS ORDERED: Potassium Chloride 20 MEQ TAB ONE (02:05)
[2022-02-04] MEDS: Cefepime 1 GM in Sodium Chloride 0.9% 100 ML IVPB SCH ×2 (04:07→16:14)
[2022-02-04 04:51] LABS: #Monocytes 0.8 thou/uL (0.11-0.59); #Neutrophils 8.4 thou/uL (1.40-6.50); %Basophils 0.3 % (0.0-1.0); %Eosinophils 0.3 % (0.0-10.0); %Lymphocytes 9.9 % (21.0-51.0); %Monocytes 7.7 % (0.0-10.0); %Neutrophils 81.9 % (42.0-75.0); Hemoglobin 12.4 g/dL (14.0-18.0); Mean Corpuscular HGB CONC 31.4 g/dL (32.0-36.0); Mean Platelet Volume 9.9 fL (7.4-10.4); Platelet Count 183 thou/uL (130-400); RBC Distribution Width 13.3 % (11.5-14.5); Red Blood Cell (RBC) Count 3.55 mill/uL (4.70-6.10); White Blood Cell (WBC) Count 10.2 thou/uL (4.8-10.8)
[2022-02-04] MEDS: Dextrose 5 %-0.45 % NaCl 1,000 ML IV SCH ×2 (04:56→17:40)
[2022-02-04 05:04] LABS: Troponin I 0.082 ng/mL (< 0.028)
[2022-02-04 05:06] LABS: ALT (SGPT) 11 U/L (8-55); AST (SGOT) 21 U/L (5-34); Albumin 3.1 g/dL (3.4-4.8); Alkaline Phosphatase 62 U/L (40-110); Anion Gap 16 mmol/L (10-20); BUN (Urea Nitrogen) 42 mg/dL (8.4-25.7); Calc. Creatinine Clearance 35 mL/min (70-130); Calcium 9.1 mg/dL (7.8-10.44); Carbon Dioxide 31 mmol/L (23-31); Chloride 103 mmol/L (98-107); Estimated GFR 47; Globulin 3.1 g/dL (2.4-3.5); Glucose 105 mg/dL (83-110); Potassium 3.4 mmol/L (3.5-5.1); Protein, Total 6.2 g/dL (5.8-8.1); Sodium 147 mmol/L (136-145)
[2022-02-04] MEDS: Potassium Chloride 10 MEQ TAB PO SCH ×2 (09:08→20:45)
[2022-02-04] MEDS: Apixaban 2.5 MG TAB PO SCH ×2 (09:09→20:45)
[2022-02-04] MEDS ORDERED: Senokot 8.6 MG TAB PO SCH (11:15)
[2022-02-04] MEDS ORDERED: Vancomycin 1 GM in Premix Bag 1 BAG IVPB SCH (17:00)
[2022-02-04] MEDS: Dorzolamide HCl 2% Ophth Soln 10 ml Bottle EA EYE SCH (20:47)
[2022-02-04] MEDS: Brimonidine Tartrate 0.2% Ophth Soln 5 ml Bottle EA EYE SCH (20:47)
[2022-02-04] MEDS: Latanoprost 0.005% Ophth Soln 2.5 ml Bottle EA EYE SCH (20:48)
[2022-02-04] MEDS: Fluticasone Propionate Nasal Spray 16 gm Bottle NASAL SCH (20:48)
[2022-02-04] MEDS: Timolol 0.5% Ophth Soln 5 ml Bottle EA EYE SCH (20:49)
[2022-02-04] MEDS ORDERED: Non-Formulary Item 1 EACH (Bimatoprost [Lumigan] 5 ML Drops) OP SCH (21:00)
[2022-02-05] MEDS: Cefepime 1 GM in Sodium Chloride 0.9% 100 ML IVPB SCH ×2 (04:00→15:43)
[2022-02-05] MEDS ORDERED: Bisacodyl 10 MG SUPP PR SCH (07:00)
[2022-02-05] MEDS ORDERED: Fleet Enema 133 ML BOT PR SCH (07:30)
[2022-02-05 07:36] LABS: #Eosinphils 0.1 thou/uL (0.0-0.7); #Lymphocytes 0.8 thou/uL (1.20-3.40); #Monocytes 0.9 thou/uL (0.11-0.59); #Neutrophils 6.8 thou/uL (1.40-6.50); %Basophils 0.2 % (0.0-1.0); %Eosinophils 1.2 % (0.0-10.0); %Lymphocytes 9.7 % (21.0-51.0); %Neutrophils 78.8 % (42.0-75.0); Hemoglobin 11.5 g/dL (14.0-18.0); Mean Platelet Volume 9.6 fL (7.4-10.4); Platelet Count 162 thou/uL (130-400); RBC Distribution Width 13.4 % (11.5-14.5); Red Blood Cell (RBC) Count 3.29 mill/uL (4.70-6.10); White Blood Cell (WBC) Count 8.6 thou/uL (4.8-10.8)
[2022-02-05 08:08] LABS: ALT (SGPT) 11 U/L (8-55); AST (SGOT) 20 U/L (5-34); Albumin 2.9 g/dL (3.4-4.8); Alkaline Phosphatase 62 U/L (40-110); Anion Gap 16 mmol/L (10-20); BUN (Urea Nitrogen) 39 mg/dL (8.4-25.7); Bilirubin, Total 0.7 mg/dL (0.2-1.2); Calc. Creatinine Clearance 39 mL/min (70-130); Calcium 9.1 mg/dL (7.8-10.44); Carbon Dioxide 28 mmol/L (23-31); Chloride 108 mmol/L (98-107); Estimated GFR 52; Globulin 2.9 g/dL (2.4-3.5); Glucose 96 mg/dL (83-110); Potassium 3.6 mmol/L (3.5-5.1); Protein, Total 5.8 g/dL (5.8-8.1); Sodium 148 mmol/L (136-145)
[2022-02-05] MEDS: Latanoprost 0.005% Ophth Soln 2.5 ml Bottle EA EYE SCH ×2 (09:12→21:28)
[2022-02-05] MEDS: Brimonidine Tartrate 0.2% Ophth Soln 5 ml Bottle EA EYE SCH ×2 (09:12→21:28)
[2022-02-05] MEDS: Dextrose 5 %-0.45 % NaCl 1,000 ML IV SCH (09:12)
[2022-02-05] MEDS: Dorzolamide HCl 2% Ophth Soln 10 ml Bottle EA EYE SCH ×2 (09:13→21:28)
[2022-02-05] MEDS: Fluticasone Propionate Nasal Spray 16 gm Bottle NASAL SCH ×2 (09:13→21:28)
[2022-02-05] MEDS: Empagliflozin 10 MG TAB PO SCH (09:14)
[2022-02-05] MEDS: Potassium Chloride 10 MEQ TAB PO SCH ×2 (09:14→21:30)
[2022-02-05] MEDS: Apixaban 2.5 MG TAB PO SCH ×2 (09:14→21:28)
[2022-02-05] MEDS: Atorvastatin Calcium 40 MG TAB PO SCH (09:14)
[2022-02-05] MEDS: Timolol 0.5% Ophth Soln 5 ml Bottle EA EYE SCH ×2 (09:15→21:27)
[2022-02-05] MEDS: Bisacodyl 10 MG SUPP PR SCH ×2 (15:01→21:30)
[2022-02-05] MEDS: Benzonatate 100 MG CAP PO SCH ×2 (15:02→21:29)
[2022-02-05] MEDS: guaiFENesin ER 600 MG TAB PO SCH (21:29)
[2022-02-06 04:16] LABS: #Eosinphils 0.1 thou/uL (0.0-0.7); #Lymphocytes 1.1 thou/uL (1.20-3.40); #Monocytes 0.8 thou/uL (0.11-0.59); #Neutrophils 5.3 thou/uL (1.40-6.50); %Basophils 0.6 % (0.0-1.0); %Eosinophils 1.7 % (0.0-10.0); %Lymphocytes 14.9 % (21.0-51.0); %Monocytes 10.6 % (0.0-10.0); %Neutrophils 72.2 % (42.0-75.0); Hemoglobin 11.9 g/dL (14.0-18.0); Mean Corpuscular HGB CONC 31.7 g/dL (32.0-36.0); Mean Corpuscular Hemoglobin 35.9 pg (27.0-31.0); Mean Platelet Volume 9.9 fL (7.4-10.4); Platelet Count 167 thou/uL (130-400); RBC Distribution Width 13.5 % (11.5-14.5); Red Blood Cell (RBC) Count 3.31 mill/uL (4.70-6.10); White Blood Cell (WBC) Count 7.3 thou/uL (4.8-10.8)
[2022-02-06 04:37] LABS: Anion Gap 17 mmol/L (10-20); BUN (Urea Nitrogen) 40 mg/dL (8.4-25.7); Calc. Creatinine Clearance 37 mL/min (70-130); Calcium 9.2 mg/dL (7.8-10.44); Carbon Dioxide 26 mmol/L (23-31); Chloride 108 mmol/L (98-107); Estimated GFR 49; Glucose 119 mg/dL (83-110); Potassium 3.7 mmol/L (3.5-5.1); Sodium 147 mmol/L (136-145)
[2022-02-06] MEDS: Cefepime 1 GM in Sodium Chloride 0.9% 100 ML IVPB SCH ×2 (04:49→15:00)
[2022-02-06] MEDS: Acetaminophen 650 MG/20.3 ML UDCUP PO PRN ×2 (04:49→14:19)
[2022-02-06 08:47] VITALS: BMI 22.5
[2022-02-06] MEDS: Benzonatate 100 MG CAP PO SCH ×3 (09:57→21:59)
[2022-02-06] MEDS: Atorvastatin Calcium 40 MG TAB PO SCH (09:57)
[2022-02-06] MEDS: Apixaban 2.5 MG TAB PO SCH ×2 (09:57→22:00)
[2022-02-06] MEDS: Brimonidine Tartrate 0.2% Ophth Soln 5 ml Bottle EA EYE SCH ×2 (09:58→22:01)
[2022-02-06] MEDS: Fluticasone Propionate Nasal Spray 16 gm Bottle NASAL SCH ×2 (09:59→22:01)
[2022-02-06] MEDS: Dorzolamide HCl 2% Ophth Soln 10 ml Bottle EA EYE SCH ×2 (09:59→22:02)
[2022-02-06] MEDS: Empagliflozin 10 MG TAB PO SCH (09:59)
[2022-02-06] MEDS: guaiFENesin ER 600 MG TAB PO SCH ×2 (10:00→22:12)
[2022-02-06] MEDS: Latanoprost 0.005% Ophth Soln 2.5 ml Bottle EA EYE SCH ×2 (10:00→22:02)
[2022-02-06] MEDS: Potassium Chloride 10 MEQ TAB PO SCH ×2 (10:00→22:00)
[2022-02-06] MEDS: Timolol 0.5% Ophth Soln 5 ml Bottle EA EYE SCH ×2 (10:01→22:12)
[2022-02-07] MEDS: Cefepime 1 GM in Sodium Chloride 0.9% 100 ML IVPB SCH (04:43)
[2022-02-07 08:42] LABS: #Eosinphils 0.2 thou/uL (0.0-0.7); #Lymphocytes 1.2 thou/uL (1.20-3.40); #Monocytes 0.8 thou/uL (0.11-0.59); #Neutrophils 3.8 thou/uL (1.40-6.50); %Basophils 0.3 % (0.0-1.0); %Eosinophils 3.5 % (0.0-10.0); %Monocytes 13.8 % (0.0-10.0); %Neutrophils 63.4 % (42.0-75.0); Hemoglobin 11.9 g/dL (14.0-18.0); Mean Corpuscular HGB CONC 31.3 g/dL (32.0-36.0); Mean Corpuscular Hemoglobin 35.1 pg (27.0-31.0); Mean Platelet Volume 9.8 fL (7.4-10.4); Platelet Count 145 thou/uL (130-400); RBC Distribution Width 13.3 % (11.5-14.5); Red Blood Cell (RBC) Count 3.38 mill/uL (4.70-6.10); White Blood Cell (WBC) Count 6.1 thou/uL (4.8-10.8)
[2022-02-07 08:50] LABS: Anion Gap 11 mmol/L (10-20); BUN (Urea Nitrogen) 34 mg/dL (8.4-25.7); Calc. Creatinine Clearance 38 mL/min (70-130); Calcium 9.1 mg/dL (7.8-10.44); Carbon Dioxide 28 mmol/L (23-31); Chloride 109 mmol/L (98-107); Estimated GFR 50; Glucose 113 mg/dL (83-110); Potassium 4.3 mmol/L (3.5-5.1); Sodium 144 mmol/L (136-145)
[2022-02-07] MEDS ORDERED: Bisacodyl 10 MG SUPP PR PRN (10:29)
[2022-02-07] MEDS: Apixaban 2.5 MG TAB PO SCH (12:12)
[2022-02-07] MEDS: guaiFENesin ER 600 MG TAB PO SCH (12:12)
[2022-02-07] MEDS: Benzonatate 100 MG CAP PO SCH (12:12)
[2022-02-07] MEDS: Potassium Chloride 10 MEQ TAB PO SCH (12:12)
[2022-02-07] MEDS: Empagliflozin 10 MG TAB PO SCH (12:13)
[2022-02-07] MEDS: Atorvastatin Calcium 40 MG TAB PO SCH (12:13)
[2022-02-07] MEDS: Fluticasone Propionate Nasal Spray 16 gm Bottle NASAL SCH (12:14)
[2022-02-07] MEDS: Latanoprost 0.005% Ophth Soln 2.5 ml Bottle EA EYE SCH (12:15)
[2022-02-07] MEDS: Timolol 0.5% Ophth Soln 5 ml Bottle EA EYE SCH (12:15)
[2022-02-07] MEDS: Brimonidine Tartrate 0.2% Ophth Soln 5 ml Bottle EA EYE SCH (12:15)
[2022-02-07] MEDS: Dorzolamide HCl 2% Ophth Soln 10 ml Bottle EA EYE SCH (12:16)
[2022-02-07] MEDS: Acetaminophen 650 MG/20.3 ML UDCUP PO PRN (12:20)
[2022-02-07 13:02] VITALS: BP 150/90; TEMP 98.2
[2022-02-07] MEDS ORDERED: Cefdinir 300 MG CAP PO SCH (21:00)
[2022-02-07] MEDS ORDERED: Senokot S 8.6-50 MG TAB PO SCH (21:00)
[2022-02-08] MEDS ORDERED: Polyethylene Glycol 3350 17 GM Packet PO SCH (09:00)
== END 2022-02-07 15:23 | DRG 177 ==
LOC: EDSTATUS 21:23 → 2NO 21:23
PROVIDERS: ADMIT Internal Medicine; ATTEND Internal Medicine
DX: J69.0 Pneumonitis due to inhalation of food and vomit (principal); I50.33 Acute on chronic diastolic (congestive) heart failure; J96.01 Acute respiratory failure with hypoxia; I13.0 Hypertensive heart and chronic kidney disease with heart failure and stage 1 through stage 4 chronic kidney disease, or unspecified chronic kidney disease; E44.0 Moderate protein-calorie malnutrition; E87.0 Hyperosmolality and hypernatremia; N17.9 Acute kidney failure, unspecified; Z20.822 Contact with and (suspected) exposure to COVID-19; E11.22 Type 2 diabetes mellitus with diabetic chronic kidney disease; E78.5 Hyperlipidemia, unspecified; E86.0 Dehydration; E87.6 Hypokalemia; D63.1 Anemia in chronic kidney disease; I48.0 Paroxysmal atrial fibrillation; E11.69 Type 2 diabetes mellitus with other specified complication; K59.01 Slow transit constipation; N18.30 Chronic kidney disease, stage 3 unspecified; Z88.8 Allergy status to other drugs, medicaments and biological substances; Z79.899 Other long term (current) drug therapy; Z79.84 Long term (current) use of oral hypoglycemic drugs; Z79.01 Long term (current) use of anticoagulants; Z90.49 Acquired absence of other specified parts of digestive tract; Z98.890 Other specified postprocedural states; Z82.49 Family history of ischemic heart disease and other diseases of the circulatory system; Z68.22 Body mass index [BMI] 22.0-22.9, adult
CPT/HCPCS: 36415; 36416; 71045; 74018; 74019; 74230; 78451; 80048; 80053; 83735; 83880; 83935; 84300; 84484; 85025; 94640; A9540; J0692; J1815; J1956; J3370; J3475; J3490; J7042; J7050; J7620